=== PATIENT | female | born 1960 | race Caucasian/White ===

== ENCOUNTER 2019-11-02 16:35 | Emergency (ER) | payer OTHER, SELFPAY ==
[2019-11-02] MEDS ORDERED: Acetaminophen 500 MG TAB ONE (16:58)
[2019-11-02] MEDS ORDERED: Sodium Chloride 0.9% 1,000 ML ONE ×2 (17:23→18:32)
[2019-11-02] MEDS ORDERED: Ondansetron PF 4 MG/2 ML Vial ONE (17:23)
[2019-11-02] MEDS ORDERED: Sodium Chloride 0.9% 100 ML ONE (17:23)
[2019-11-02] MEDS ORDERED: cefTRIAXone\\ROCEPHIN 2 GM VIAL ONE (17:23)
[2019-11-02] MEDS ORDERED: Lidocaine 1% (PF) 30 ML VIAL ONE (17:27)
[2019-11-02 17:42] LABS: #Basophils 0.2 thou/uL (0.0-0.2); #Eosinphils 0.1 thou/uL (0.0-0.7); #Lymphocytes 2.4 thou/uL (1.20-3.40); #Monocytes 1.1 thou/uL (0.11-0.59); #Neutrophils 11.4 thou/uL (1.40-6.50); %Eosinophils 0.8 % (0.0-10.0); %Monocytes 7.1 % (0.0-10.0); %Neutrophils 75.1 % (42.0-75.0); Mean Corpuscular HGB CONC 32.6 g/dL (32.0-36.0); Mean Corpuscular Hemoglobin 30.8 pg (27.0-31.0); Mean Corpuscular Volume 94.5 fL (78.0-98.0); Mean Platelet Volume 7.2 fL (7.4-10.4); Platelet Count 313 thou/uL (130-400); RBC Distribution Width 11.9 % (11.5-14.5); Red Blood Cell (RBC) Count 4.21 mill/uL (4.20-5.40); White Blood Cell (WBC) Count 15.2 thou/uL (4.8-10.8)
[2019-11-02 17:52] LABS: ALT (SGPT) 58 U/L (8-55); AST (SGOT) 30 U/L (5-34); Albumin 4.8 g/dL (3.5-5.0); Alkaline Phosphatase 76 U/L (40-110); Anion Gap 19 mmol/L (10-20); BUN (Urea Nitrogen) 12 mg/dL (9.8-20.1); Bilirubin, Total 0.4 mg/dL (0.2-1.2); Calc. Creatinine Clearance 0 mL/min (70-130); Calcium 9.5 mg/dL (7.8-10.44); Carbon Dioxide 20 mmol/L (22-29); Chloride 102 mmol/L (98-107); Estimated GFR-MDRD 74; Globulin 2.9 g/dL (2.4-3.5); Glucose 212 mg/dL (70-105); Potassium 4.1 mmol/L (3.5-5.1); Protein, Total 7.7 g/dL (6.0-8.3); Sodium 137 mmol/L (136-145)
[2019-11-02 18:25] LABS: Bilirubin Negative (Negative); Blood, Urine Negative (Negative); Clarity Clear (Clear); Glucose, Urine (Dipstick) Negative (Negative); Ketone, Urine Negative (Negative); Leukocyte Trace (Negative); Nitrite Negative (Negative); Protein, Urine (Dipstick) Negative (Neg-Trace); Specific Gravity, Urine 1.015 (1.005-1.030); Urobilinogen 0.2 mg/dL (Less than 2)
[2019-11-02 18:27] LABS: Bacteria/HPF 1+ HPF (None Seen); RBC/HPF 0-3 HPF (0-3); Squamous Epithelial 0-3 HPF (0-3)
[2019-11-02] MEDS ORDERED: Ibuprofen 800 MG TAB ONE (19:44)
[2019-11-02] MEDS ORDERED: Sulfameth/Trimethoprim DS 800-160mg TAB ONE (20:09)
== END 2019-11-02 20:09 | disposition home or self-care (01) ==
LOC: NAV ERS 16:35
DX: L02.211 Cutaneous abscess of abdominal wall (principal); E11.9 Type 2 diabetes mellitus without complications; E78.5 Hyperlipidemia, unspecified; E78.00 Pure hypercholesterolemia, unspecified; F32.9 Major depressive disorder, single episode, unspecified; Z87.891 Personal history of nicotine dependence; Z79.4 Long term (current) use of insulin; Z79.899 Other long term (current) drug therapy
CPT/HCPCS: 10060; 80053; 81003; 81015; 83605; 84484; 85025; 87040; 93005; 96361; 96365; 96375; J0696; J2001; J2405; J3490; J7050

== ENCOUNTER 2023-02-23 13:14 | Outpatient (CLI) | payer SELFPAY | END 2023-02-23 13:15 | disposition home or self-care (01) | LOC: NAV RAD 13:14 | PROVIDERS: ATTEND Family Medicine | DX: M79.632 Pain in left forearm (principal); M25.512 Pain in left shoulder ==

== ENCOUNTER 2023-11-08 16:52 | Emergency (ER) | payer SELFPAY ==
[~2023-11-08 16:52] MED LIST: Iopamidol 370 76% 100 ML VIAL ONE
[2023-11-08 17:22] LABS: #Basophils 0.1 thou/uL (0.0-0.2); #Eosinphils 0.1 thou/uL (0.0-0.7); #Lymphocytes 3.4 thou/uL (1.20-3.40); #Monocytes 0.8 thou/uL (0.11-0.59); #Neutrophils 11.4 thou/uL (1.40-6.50); %Basophils 0.6 % (0.0-1.0); %Eosinophils 0.6 % (0.0-10.0); %Lymphocytes 21.5 % (21.0-51.0); %Monocytes 4.8 % (0.0-10.0); %Neutrophils 72.6 % (42.0-75.0); Hematocrit 41.2 % (36.0-47.0); Hemoglobin 13.4 g/dL (12.0-16.0); Mean Corpuscular HGB CONC 32.4 g/dL (32.0-36.0); Mean Corpuscular Hemoglobin 29.2 pg (27.0-31.0); Mean Corpuscular Volume 89.9 fl (78.0-98.0); Mean Platelet Volume 7.1 fL (7.4-10.4); Platelet Count 294 10x3/uL (130-400); RBC Distribution Width 11.7 % (11.5-14.5); Red Blood Cell (RBC) Count 4.58 mill/uL (4.20-5.40); White Blood Cell (WBC) Count 15.7 10x3/uL (4.8-10.8)
[2023-11-08 17:32] LABS: BHCG - Serum Negative (NEGATIVE); Pregs Control Bar Appear? YES (CONTROL BAR)
[2023-11-08 17:41] LABS: ALT (SGPT) 89 U/L (8-55); AST (SGOT) 36 U/L (5-34); Alkaline Phosphatase 82 U/L (40-110); Anion Gap 16 mmol/L (10-20); BUN (Urea Nitrogen) 8 mg/dL (9.8-20.1); Bilirubin, Total 0.6 mg/dL (0.2-1.2); Calc. Creatinine Clearance 0 mL/min (70-130); Calcium 10.1 mg/dL (7.8-10.44); Carbon Dioxide 25 mmol/L (23-31); Chloride 99 mmol/L (98-107); Estimated GFR 88; Globulin 4.1 g/dL (2.4-3.5); Glucose 179 mg/dL (80-115); Lipase 31 U/L (8-78); Potassium 4.3 mmol/L (3.5-5.1); Protein, Total 8.1 g/dL (5.8-8.1); Sodium 136 mmol/L (136-145)
[2023-11-08] MEDS ORDERED: Sodium Chloride 0.9% 1,000 ML ONE (18:00)
[2023-11-08] MEDS ORDERED: Acetaminophen 650 MG Suppository ONE (18:00)
[2023-11-08] MEDS ORDERED: Morphine 2 MG/ML VIAL ONE ×2 (18:25→19:19)
[2023-11-08] MEDS ORDERED: Promethazine HCl 25 MG/ML VIAL ONE (18:26)
[2023-11-08 19:12] LABS: Bilirubin Negative (Negative); Blood, Urine Negative (Negative); Clarity Clear (Clear); Glucose, Urine (Dipstick) Negative (Negative); Ketone, Urine Trace mg/dL (Negative); Leukocyte Negative (Negative); Nitrite Negative (Negative); Protein, Urine (Dipstick) Negative (Neg-Trace); Urobilinogen 0.2 mg/dL (Less than 2)
[2023-11-08 19:19] LABS: CAUTI Indications for Culture Fever or rigors; Squamous Epithelial 0-3 HPF (0-3); Urine Culture Reflex No No; WBC/HPF 0-3 HPF (0-3)
[2023-11-08] MEDS ORDERED: Dextrose 5 %-0.45 % NaCl 1,000 ML ONE (19:19)
[2023-11-08] MEDS ORDERED: Piperacillin/Tazobactam 4.5 GM VIAL ONE (19:48)
== END 2023-11-08 22:18 | disposition short-term general hospital (02) ==
LOC: NAV ERS 16:52
DX: K57.20 Diverticulitis of large intestine with perforation and abscess without bleeding (principal); E11.9 Type 2 diabetes mellitus without complications; Z87.891 Personal history of nicotine dependence
CPT/HCPCS: 74177; 80053; 81001; 83690; 84703; 85025; 96365; 96374; 96375; J2272; J2543; J2550; J7030; J7042; Q9967